=== PATIENT | male | born 1980 | race Two or more races ===

== ENCOUNTER 2019-09-09 01:36 | Emergency (ER) | payer OTHER, SELFPAY ==
[~2019-09-09] VITALS: Ht 180.3 cm; Wt 117.9 kg
--- NOTE | 2019-09-09 01:40 | NUR ---
PT CAME TO THE ED C/O DIZZINESS +NAUSEA X 2 DAYS. PT STATES "I WAS ON MY CPAP AND FELT PRESSURE, TOOK IT OFF AND FELT DIZZY ALL OF A SUDDEN". PT AAOX4, VSS, RESPIRATIONS EVEN AND UNLABORED ON RA W/ NAD NOTED. PT CONNECTED TO THE MONITOR AND POX
[2019-09-09] MEDS ORDERED: ONDANSETRON HCL/PF 4 MG/2 ML VIAL ONE ×3 (01:53→06:17)
[2019-09-09] MEDS ORDERED: DIAZEPAM 5 MG/ML 2 ML DISP.SYRIN ONE (01:54)
[2019-09-09] MEDS ORDERED: DIAZEPAM 5 MG/ML 2 ML DISP.SYRIN IV ONE (02:00)
[2019-09-09] MEDS ORDERED: IV NS 0.9% 1,000 ML BAG IV ONE (02:00)
[2019-09-09] MEDS ORDERED: ONDANSETRON HCL/PF 4 MG/2 ML VIAL IVP ONE (02:00)
[2019-09-09 02:18] LABS: BASOPHILS # (AUTO) 0.1 /CMM (0.0-0.2); BASOPHILS % (AUTO) 0.6 % (0.0-2.0); EOSINOPHILS % (AUTO) 0.1 % (0.0-6.0); HEMATOCRIT 50 % (39-51); HEMOGLOBIN 16.8 g/dL (13.5-17.5); LYMPHOCYTES # (AUTO) 1.4 /CMM (0.8-4.8); LYMPHOCYTES % (AUTO) 9.3 % (20.0-44.0); MEAN CORPUSCULAR HGB CONC 33 g/dl (31.0-36.0); MEAN CORPUSCULAR VOLUME 91 fL (80-96); MONOCYTES # (AUTO) 1.3 /CMM (0.1-1.30); MONOCYTES % (AUTO) 8.2 % (2.0-12.0); NEUTROPHILS # (AUTO) 12.7 /CMM (1.8-8.9); NEUTROPHILS % (AUTO) 81.8 % (43.0-81.0); PLATELET COUNT (AUTO) 299 /CMM (150-450); RED BLOOD CELL COUNT(AUTO) 5.52 MIL/uL (4.5-6.0); WHITE BLOOD COUNT (AUTO) 15.5 K/uL (4.3-11.0)
[2019-09-09 02:41] LABS: BILIRUBIN,DIRECT 0.1 mg/dL (0.0-0.2); BILIRUBIN,TOTAL 0.5 mg/dL (0.2-1.0); CALCIUM, SERUM 10.3 mg/dL (8.5-10.1); CREATININE 1.1 mg/dL (0.6-1.3); POTASSIUM 3.4 mmol/L (3.5-5.1); TOTAL PROTEIN, SERUM 7.4 g/dL (6.4-8.2)
[2019-09-09] MEDS ORDERED: KETOROLAC TROMETHAMINE INJ 30 MG/ML VIAL ONE (03:15)
[2019-09-09] MEDS ORDERED: ONDANSETRON HCL/PF 4 MG/2 ML VIAL IV ONE ×2 (03:30→06:30)
[2019-09-09] MEDS ORDERED: KETOROLAC TROMETHAMINE INJ 30 MG/ML VIAL IV ONE (03:30)
[2019-09-09] MEDS ORDERED: IV NS 0.9% 250 ML IV ONE (03:35)
[2019-09-09] MEDS ORDERED: IOHEXOL-350 100 ML VIAL IV ONE (03:35)
--- NOTE | 2019-09-09 03:43 | NUR ---
PT TAKEN TO RADIOLOGY FOR CT
--- NOTE | 2019-09-09 03:55 | NUR ---
PT BACK FROM RADIOLOGY
--- NOTE | 2019-09-09 04:13 | NUR ---
COVID SWAB COLLECTED AND SENT TO LAB
--- NOTE | 2019-09-09 04:15 | NUR ---
COVID SWAB COLLECTED AND SENT TO THE LAB.
[2019-09-09] MEDS ORDERED: METOCLOPRAMIDE HCL 10 MG/2 ML VIAL ONE (04:27)
[2019-09-09] MEDS ORDERED: METOCLOPRAMIDE HCL 10 MG/2 ML VIAL IV ONE (04:30)
[2019-09-09] MEDS ORDERED: MORPHINE SULFATE INJ 4 MG/ML DISP.SYRIN ONE (06:17)
[2019-09-09] MEDS ORDERED: MORPHINE SULFATE INJ 2 MG/ML DISP.SYRIN IV ONE (06:30)
--- NOTE | 2019-09-09 06:38 | NUR ---
LAB STAFF CALLED, STATES THAT COVID 19 SWAB RESULTS DIDN'T WORK, WOULD LIKE FOR PATIENT TO RESWAB.
--- NOTE | 2019-09-09 06:45 | NUR ---
SWAB COLLECTED AND SENT TO THE LAB.
--- NOTE | 2019-09-09 06:49 | NUR ---
PT RESTING COMFORTABLY IN BED. VSS. NO ACUTE DISTRESS NOTED. VSS
--- NOTE | 2019-09-09 07:54 | NUR ---
EDDA VERDUZCO RESULT (-) NEG.
--- NOTE | 2019-09-09 08:18 | NUR ---
Pt accepted to [facility] room [address] Dumont Number for report is [phone] Ext [phone] Transport ETA 1000
--- NOTE | 2019-09-09 08:39 | NUR ---
REPORT GIVEN TO MEHNAZ COX OF [facility]
[2019-09-09 10:10] VITALS: BP 127/69
--- NOTE | 2019-09-09 10:17 | NUR ---
Patient picked uup by [facility] in stable condition (VSS) to be transferred to [facility]. Clinicals and CD copy of images handed to EMS to be given to the hospital.
== END 2019-09-09 10:22 | disposition short-term general hospital (02) ==
LOC: ER 01:41
DX: I63.212 Cerebral infarction due to unspecified occlusion or stenosis of left vertebral artery (principal); R40.2412 Glasgow coma scale score 13-15, at arrival to emergency department; D72.829 Elevated white blood cell count, unspecified; R11.2 Nausea with vomiting, unspecified
CPT/HCPCS: 36415; 70450; 70496; 70498; 71045; 80048; 80076; 82962; 85025; 85730; 87081; 87426; 93005; 96361; 96374; 96375; 96376 ×2; 99291; A4216; J1885; J2270; J2405 ×3; J2765; J3360; J7050; Q9967